=== PATIENT | female | born 1950 | race Caucasian/White ===

== ENCOUNTER 2019-09-30 11:55 | Inpatient (IN) | payer MEDICARE, OTHER ==
[2019-09-30] MEDS ORDERED: Sodium Chloride 0.9% 1000 ML 1,000 ML IV STA (12:21)
[2019-09-30] MEDS ORDERED: Hydromorphone 1 mg/ml Ampule IV ONE (12:21)
[2019-09-30] MEDS ORDERED: Zofran 4 MG/2 ML VIAL IV ONE (12:21)
--- NOTE | 2019-09-30 12:34 | ERPHSYRPT ---
- History of Present Illness Time Seen by Provider: 09/30/19 11:56 Historian: patient Exam Limitations: no limitations Patient Subjective Stated Complaint: pt here from [facility] care for abd pain to right side of abd since yesterday, she states she was unable to get lab work done because she felt light headed, fever this morning, denies any n/v/d. Triage Nursing Assessment: pt alert, arrived per , was able to get self to bed and undress without assistance, resp easy, mask on, and off, pain to right side of abd, moves all ext well, Physician History: Patient is here with right lower quadrant pain. Originally, patient was in outpatient. She was going over to get a CT scan of her right lower quadrant. However, she had a near syncopal episode secondary to possible abdominal pain. And this brought her back to this emergency department. During this near syncopal episode she had no chest pain, shortness of breath, did not pass out, no loss of consciousness. Location: RLQ Quality: sharp Radiation: none Severity: moderate Duration: yesterday Timing: gradual Modifying factors/associated signs and symptoms: none tried Allergies/Adverse Reactions: No Known Drug Allergies Allergy (Verified 09/30/19 12:03) Home Medications: Atenolol [Tenormin] 25 mg PO DAILY 01/17/14 [History] Pantoprazole Sodium 40 mg PO DAILY 01/17/14 [History] Pramipexole Di-HCl [Pramipexole Dihydrochloride] 0.125 mg PO DAILY 01/17/14 [ History] Pravastatin Sodium 10 mg PO DAILY 01/17/14 [History] Torsemide [Demadex] 10 mg PO DAILY 01/17/14 [History] allopurinoL [Allopurinol] 100 mg DAILY 09/30/19 [History] Hx Tetanus, Diphtheria Vaccination/Date Given: Yes Hx Influenza Vaccination/Date Given: Yes Hx Pneumococcal Vaccination/Date Given: Yes Immunizations Up to Date: Yes Travel Risk - International Travel Have you traveled outside of the country in past 3 weeks: No - Coronavirus Screening Symptoms: Fever Close contact with a COVID-19 positive Pt in past 14-21 Days: No - Review of Systems Constitutional: No Fever, No Chills Eyes: No Symptoms Ears, Nose, & Throat: No Symptoms Respiratory: No Cough, No Dyspnea Cardiac: No Chest Pain, No Edema, No Syncope Abdominal/Gastrointestinal: Abdominal Pain, No Nausea, No Vomiting, No Diarrhea Genitourinary Symptoms: No Dysuria Musculoskeletal: No Back Pain, No Neck Pain Skin: No Rash Neurological: No Dizziness, No Focal Weakness, No Sensory Changes Psychological: No Symptoms Endocrine: No Symptoms All Other Systems: Reviewed and Negative - Past Medical History Pertinent Past Medical History: Yes Neurological History: Migraines ENT History: No Pertinent History Cardiac History: No Pertinent History Respiratory History: No Pertinent History Endocrine Medical History: No Pertinent History Musculoskeletal History: No Pertinent History GI Medical History: GERD History: Renal Disease, Other Psycho-Social History: No Pertinent History Female Reproductive Disorders: No Pertinent History Other Medical History: stage 4 kidney disease - Past Surgical History Past Surgical History: Yes Neuro Surgical History: No Pertinent History Cardiac: No Pertinent History Respiratory: No Pertinent History Gastrointestinal: No Pertinent History Genitourinary: No Pertinent History Musculoskeletal: Orthopedic Surgery Female Surgical History: No Pertinent History Other Surgical History: celi. knee arthroscopy,parathyroid - Social History Smoking Status: Never smoker Exposure to second hand smoke: No Drug Use: none Patient Lives Alone: No - Female History Hx Last Menstrual Period: post Hx Now: No - Nursing Vital Signs Nursing Vital Signs: Initial Vital Signs Temperature 99.1 F 09/30/19 12:06 Pulse Rate 78 09/30/19 12:06 Respiratory Rate 18 09/30/19 12:06 Blood Pressure 139/80 09/30/19 12:06 O2 Sat by Pulse Oximetry 97 09/30/19 12:06 Pain Scale Pain Intensity 3 - Physical Exam General Appearance: no apparent distress, alert Eye Exam: PERRL/EOMI, eyes nml inspection Ears, Nose, Throat Exam: normal ENT inspection, pharynx normal, moist mucous membranes Neck Exam: normal inspection, non-tender, supple, full range of motion Respiratory Exam: normal breath sounds, lungs clear, No respiratory distress Cardiovascular Exam: regular rate/rhythm, normal heart sounds Gastrointestinal/Abdomen Exam: soft, other (Right lower quadrant abdominal tenderness to palpation without rebound or guarding), No tenderness, No mass Back Exam: normal inspection, normal range of motion, No CVA tenderness, No vertebral tenderness Extremity Exam: normal inspection, normal range of motion, pelvis stable Neurologic Exam: alert, oriented x 3, cooperative, normal mood/affect, nml cerebellar function, sensation nml, No motor deficits Skin Exam: normal color, warm, dry SpO2 Interpretation: normal SpO2: 97 Comments: 09/30/19 12:33 No obvious deformity, sensation intact, 2+ capillary refill, 2 point tactile discrimination intact. 5 out of 5 strength. Full range of motion without pain. Compartments are soft, nontender. Overlying skin shows no tenting, bruising, ecchymosis. Motor: There is no pronator drift of out-stretched arms. Muscle bulk and tone are normal. Strength is full bilaterally. Reflexes: Reflexes are 2+ and symmetric at the biceps, triceps, knees, and ankles. Plantar responses are flexor. Sensory: Light touch sense are intact in bilateral upper and lower extremities. There is no sign of neglect. Coordination: Rapid alternating movements are intact. There is no dysmetria on [id number] and [id number]. There are no abnormal or extraneous movements. Romberg is absent. Gait/Stance: Posture is normal. Gait is steady with normal steps, base, arm swing, and turning. Heel and toe walking are normal. Tandem gait is normal. Ordered Tests: Active Orders 24 hr Category Date Time Status Admit as Inpatient ROUTINE Care 09/30/19 15:39 Active Code Status Order ROUTINE Care 09/30/19 15:38 Active EKG-ER Only STAT Care 09/30/19 12:21 Active IV Care Q6H Care 09/30/19 15:38 Active IV Insertion STAT Care 09/30/19 12:21 Active NPO Diet 09/30/19 15:39 Active ABDOMEN AND PELVIS W/0 CONTRAS [CT] Stat Exams 09/30/19 13:38 Completed CHEST 2 VIEWS (PA AND LAT) Stat Exams 09/30/19 13:39 Completed BMP AM.LAB Lab 10/01/19 04:00 Ordered CBC W DIFF AM.LAB Lab 10/01/19 04:00 Ordered CBC W DIFF Stat Lab 09/30/19 12:21 Completed CMP Stat Lab 09/30/19 12:21 Completed LIPASE Stat Lab 09/30/19 12:21 Completed Lactic Acid Stat Lab 09/30/19 12:21 Completed TROPONIN Q3H Lab 09/30/19 12:21 Completed TROPONIN Q3H Lab 09/30/19 15:30 Ordered TROPONIN Q3H Lab 09/30/19 18:30 Ordered TROPONIN Q3H Lab 09/30/19 21:30 Ordered TROPONIN Q3H Lab 10/01/19 00:30 Ordered UA W/RFX UR CULTURE Stat Lab 09/30/19 12:50 Completed Medication Summary Generic Name Dose Route Start Last Admin Trade Name Katherine PRN Reason Stop Dose Admin Piperacillin Sod/Tazobactam 100 mls @ 200 mls/hr 09/30/19 15:22 09/30/19 15: 25 Sod 4.5 gm/ Sodium Chloride IV 09/30/19 15:51 200 mls/hr STAT ONE Administration Piperacillin Sod/Tazobactam 100 mls @ 200 mls/hr 09/30/19 18:00 Sod 3.375 gm/ Sodium Chloride IV 10/30/19 17:59 Q6HT MARNI Sodium Chloride 1,000 mls @ 125 mls/hr 09/30/19 15:45 Sodium Chloride 0.9% 1000 Ml IV 10/30/19 15:44 .Q8H MARNI Morphine Sulfate 2 mg 09/30/19 15:38 Morphine Sulfate 2 Mg Inj IV 10/05/19 15:37 Q4H PRN PRN PAIN Ondansetron HCl 4 mg 09/30/19 15:38 Zofran 4 Mg/2 Ml Vial IV 10/30/19 15:37 Q6H PRN PRN NAUSEA/VOMITING Discontinued Medications Generic Name Dose Route Start Last Admin Trade Name Katherine PRN Reason Stop Dose Admin Hydromorphone HCl 1 mg 09/30/19 12:21 09/30/19 12:39 Hydromorphone 1 Mg/Ml Ampule IV 09/30/19 12:22 1 mg STAT ONE Administration Hydromorphone HCl Confirm 09/30/19 12:35 Hydromorphone 1 Mg/Ml Ampule Administered 09/30/19 12:36 Dose 1 mg .ROUTE .STK-MED ONE Sodium Chloride 1,000 mls @ 999 mls/hr 09/30/19 12:21 09/30/19 13:47 Sodium Chloride 0.9% 1000 Ml IV 09/30/19 13:21 Infused .Q1H1M STA Infusion Sodium Chloride Confirm 09/30/19 12:36 Sodium Chloride 0.9% 1000 Ml Administered 09/30/19 12:37 Dose 1,000 mls @ ud .ROUTE .STK-MED ONE Sodium Chloride Confirm 09/30/19 15:24 Sodium Chloride 100ml Mini-Bag Plus Administered 09/30/19 15:25 Dose 100 mls @ ud IV .STK-MED ONE Ondansetron HCl 4 mg 09/30/19 12:21 09/30/19 12:40 Zofran 4 Mg/2 Ml Vial IV 09/30/19 12:22 4 mg STAT ONE Administration Ondansetron HCl Confirm 09/30/19 12:35 Zofran 4 Mg/2 Ml Vial Administered 09/30/19 12:36 Dose 4 mg .ROUTE .STK-MED ONE Piperacillin Sod/Tazobactam Sod Confirm 09/30/19 15:24 Zosyn Inj Administered 09/30/19 15:25 Dose 4.5 gm IV .STK-MED ONE Lab/Rad Data: Laboratory Result Diagrams 09/30/19 12:21 09/30/19 12:21 Laboratory Results 09/30/19 09/30/19 09/30/19 Range/Units 12:50 12:21 12:21 WBC (4.0-10.5) K/mm3 RBC (4.1-5.4) M/mm3 Hgb (12.0-16.0) gm/dl Hct (35-47) % MCV (78-100) fl MCH (26-32) pg MCHC (32-36) g/dl RDW (11.5-14.0) % Plt Count (150-450) K/mm3 MPV (7.5-11.0) fl Gran % (36.0-66.0) % Eos # (Auto) (0-0.5) Absolute Lymphs (auto) (1.0-4.6) Absolute Monos (auto) (0.0-1.3) Lymphocytes % (24.0-44.0) % Monocytes % (0.0-12.0) % Eosinophils % (0.00-5.0) % Basophils % (0.0-0.4) % Absolute Granulocytes (1.4-6.9) Basophils # (0-0.4) Sodium 141 (137-145) mmol/L Potassium 4.7 (3.5-5.1) mmol/L Chloride 106 (98-107) mmol/L Carbon Dioxide 23 (22-30) mmol/L Anion Gap 16.6 H (5-15) MEQ/L BUN 35 H (7-17) mg/dL Creatinine 2.12 H (0.52-1.04) mg/dL Estimated GFR 24.5 ML/MIN Glucose 123 H (74-106) mg/dL Lactic Acid (0.4-2.0) Calcium 9.8 (8.4-10.2) mg/dL Total Bilirubin 1.10 (0.2-1.3) mg/dL AST 27 (14-36) U/L ALT 13 (0-35) U/L Alkaline Phosphatase 141 H (38-126) U/L Troponin I < 0.012 (0.000-0.034) ng/mL Serum Total Protein 7.9 (6.3-8.2) g/dL Albumin 4.5 (3.5-5.0) g/dL Lipase 83 (23-300) U/L Urine Color YELLOW (YELLOW) Urine Appearance CLEAR (CLEAR) Urine pH 5.0 (5-6) Ur Specific [place] 1.018 (1.005-1.025) Urine Protein 100 (Negative) Urine Ketones NEGATIVE (NEGATIVE) Urine Blood SMALL (0-5) Jose Carlos/ul Urine Nitrite NEGATIVE (NEGATIVE) Urine Bilirubin NEGATIVE (NEGATIVE) Urine Urobilinogen NEGATIVE (0-1) mg/dL Ur Leukocyte Esterase NEGATIVE (NEGATIVE) Urine WBC (Auto) NONE (0-5) /HPF Urine RBC (Auto) NONE (0-2) /HPF U Hyaline Cast (Auto) 3-5 (0-2) /LPF U Epithel Cells (Auto) NONE (FEW) /HPF Urine Bacteria (Auto) NONE (NEGATIVE) /HPF Urine Mucus (Auto) SLIGHT (NEGATIVE) /HPF Urine Culture Reflexed NO (NO) Urine Glucose NEGATIVE (NEGATIVE) mg/dL 09/30/19 09/30/19 Range/Units 12:21 12:21 WBC 15.4 H (4.0-10.5) K/mm3 RBC 4.44 (4.1-5.4) M/mm3 Hgb 13.3 (12.0-16.0) gm/dl Hct 41.0 (35-47) % MCV 92.3 (78-100) fl MCH 30.0 (26-32) pg MCHC 32.4 (32-36) g/dl RDW 16.0 H (11.5-14.0) % Plt Count 180 (150-450) K/mm3 MPV 12.1 H (7.5-11.0) fl Gran % 86.0 H (36.0-66.0) % Eos # (Auto) 0.03 (0-0.5) Absolute Lymphs (auto) 1.25 (1.0-4.6) Absolute Monos (auto) 0.85 (0.0-1.3) Lymphocytes % 8.1 L (24.0-44.0) % Monocytes % 5.5 (0.0-12.0) % Eosinophils % 0.2 (0.00-5.0) % Basophils % 0.2 (0.0-0.4) % Absolute Granulocytes 13.20 H (1.4-6.9) Basophils # 0.03 (0-0.4) Sodium (137-145) mmol/L Potassium (3.5-5.1) mmol/L Chloride (98-107) mmol/L Carbon Dioxide (22-30) mmol/L Anion Gap (5-15) MEQ/L BUN (7-17) mg/dL Creatinine (0.52-1.04) mg/dL Estimated GFR ML/MIN Glucose (74-106) mg/dL Lactic Acid 1.5 (0.4-2.0) Calcium (8.4-10.2) mg/dL Total Bilirubin (0.2-1.3) mg/dL AST (14-36) U/L ALT (0-35) U/L Alkaline Phosphatase (38-126) U/L Troponin I (0.000-0.034) ng/mL Serum Total Protein (6.3-8.2) g/dL Albumin (3.5-5.0) g/dL Lipase (23-300) U/L Urine Color (YELLOW) Urine Appearance (CLEAR) Urine pH (5-6) Ur Specific [place] (1.005-1.025) Urine Protein (Negative) Urine Ketones (NEGATIVE) Urine Blood (0-5) Jose Carlos/ul Urine Nitrite (NEGATIVE) Urine Bilirubin (NEGATIVE) Urine Urobilinogen (0-1) mg/dL Ur Leukocyte Esterase (NEGATIVE) Urine WBC (Auto) (0-5) /HPF Urine RBC (Auto) (0-2) /HPF U Hyaline Cast (Auto) (0-2) /LPF U Epithel Cells (Auto) (FEW) /HPF Urine Bacteria (Auto) (NEGATIVE) /HPF Urine Mucus (Auto) (NEGATIVE) /HPF Urine Culture Reflexed (NO) Urine Glucose (NEGATIVE) mg/dL - Progress Progress: improved Progress Note: 09/30/19 12:34 differential diagnosis includes kidney stone, compression fracture, infection, UTI, triple AAA - basic labs including: CBC, lipase, CMP, UA, - insert IV for fluids, pain meds, nausea control - consider imaging: CT ab/pelvis - We will also obtain an EKG, troponin evaluating her syncope 09/30/19 15:43 Nothing was found on syncopal work-up. Patient's CT scan did demonstrate acute appendicitis. Discussed over the phone with on-call general surgery, Dr. Burch. He requested the patient be admitted to his service. He will most likely take patient's appendix out. Started patient on Zosyn in ER. Counseled pt/family regarding: lab results, diagnosis, need for follow-up, rad results - Departure Departure Disposition: In-patient Admission Clinical Impression: Acute appendicitis Condition: Stable Critical Care Time: No Referrals: JEFFREY YOUNG [Primary Care Provider] -
[2019-09-30] MEDS ORDERED: Hydromorphone 1 mg/ml Ampule ONE (12:35)
[2019-09-30] MEDS ORDERED: Zofran 4 MG/2 ML VIAL ONE ×2 (12:35→17:07)
[2019-09-30] MEDS ORDERED: Sodium Chloride 0.9% 1000 ML 1,000 ML ONE (12:36)
[2019-09-30 12:39] LABS: BASOPHIL % 0.2 % (0.0-0.4); Basophil (Absolute #) 0.03 (0-0.4); Eosinophil % 0.2 % (0.00-5.0); Eosinophil (Absolute #) 0.03 (0-0.5); Hemoglobin 13.3 gm/dl (12.0-16.0); Lymphocyte (Absolute #) 1.25 (1.0-4.6); Lymphocytes % 8.1 % (24.0-44.0); Mean Cell Volume 92.3 fl (78-100); Mean Corpuscular Hgb Concent. 32.4 g/dl (32-36); Mean Platelet Volume 12.1 fl (7.5-11.0); Monocyte (Absolute #) 0.85 (0.0-1.3); Monocytes % 5.5 % (0.0-12.0); Platelet Count 180 K/mm3 (150-450); Red Blood Count 4.44 M/mm3 (4.1-5.4); White Blood Count 15.4 K/mm3 (4.0-10.5)
[2019-09-30 13:04] LABS: Appearance CLEAR (CLEAR); Bilirubin NEGATIVE (NEGATIVE); Blood SMALL Ery/ul (0-5); Glucose NEGATIVE (NEGATIVE); Ketones NEGATIVE (NEGATIVE); Leukocyte Esterase NEGATIVE (NEGATIVE); Mucus SLIGHT /HPF (NEGATIVE); Nitrite NEGATIVE (NEGATIVE); Protein,Urine Dip 100 (Negative); Specific Gravity 1.018 (1.005-1.025); Urobilinogen NEGATIVE mg/dL (0-1)
[2019-09-30 13:14] LABS: ALBUMIN 4.5 g/dL (3.5-5.0); ANION GAP 16.6 MEQ/L (5-15); BILIRUBIN,TOTAL 1.1 mg/dL (0.2-1.3); Calcium 9.8 mg/dL (8.4-10.2); Creatinine 1 2.12 mg/dL (0.52-1.04); Potassium 4.7 mmol/L (3.5-5.1); Total Protein 7.9 g/dL (6.3-8.2)
--- NOTE | 2019-09-30 14:47 | XRAY ---
Exam: Two-view chest from 09/30/2019. Comparison: Two-view chest from 04/22/2019. Indication: 68-year-old female with abdominal pain, syncope. Findings: Upright PA and lateral chest films are submitted for evaluation. The transverse heart size is normal. There is marked tortuosity of the distal descending thoracic aorta. There appears to be a mild retrocardiac hiatal hernia. The darcie appear unremarkable. The lungs are adequately inflated. There is mild elevation/eventration of the right hemidiaphragm. There is some increased bibasilar linear stranding, right greater than left. This is more pronounced than that seen on 04/22/2019. This may represent plate atelectasis. Fibrotic scarring would be another possibility. Mildred air space infiltrate is not seen. The upper and midlung zones appear clear. No pneumothorax or pleural fluid is seen. Bone demineralization, mild mid dorsal kyphosis, and mild thoracic spondylosis are seen. Impression: 1. Increasing bibasilar linear stranding, right greater than left, representing worsening as compared to 04/22/2019. This is likely due to bibasilar plate atelectasis, right greater than left. Fibrotic scarring cannot be excluded. 2. I see no air space infiltrates or other acute cardiopulmonary disease. 3. Mild elevation/eventration of the right hemidiaphragm and a mild retrocardiac hiatal hernia are seen.
[2019-09-30] MEDS ORDERED: Zosyn INJ 4.5 GM in Sodium Chloride 100ML MINI-BAG PLUS 100 ML IV ONE (15:22)
[2019-09-30] MEDS ORDERED: Zosyn INJ IV ONE (15:24)
[2019-09-30] MEDS ORDERED: Sodium Chloride 100ML MINI-BAG PLUS 100 ML IV ONE (15:24)
--- NOTE | 2019-09-30 15:28 | XRAY ---
Exam: CT of the abdomen and pelvis without IV contrast from 09/30/2019. CTDI: 11.48 mGy Comparison: None. Indication: 68-year-old female with right lower quadrant abdominal pain which began last night. Technique: Non-IV contrast axial images were obtained through the abdomen and pelvis. Reconstructed coronal and sagittal images were created and reviewed. Findings: The transverse heart size appears borderline enlarged. A mild to moderate sized retrocardiac hiatal hernia is seen. Some patchy posterior bibasilar atelectasis is seen, right greater than left. There is a 3.5 mm lung nodule at the anterior right lung base on axial image #4. This is likely not significant. The liver is of unremarkable size and uniform attenuation. The gallbladder is mildly dilated and is remarkable for a 1.4 cm in diameter solitary gallstone near the gallbladder neck. No gallbladder wall thickening or biliary duct distention is seen. The spleen is of normal size and reveals no mass. No abnormality of the pancreas and adrenal glands appear unremarkable. The kidneys reveal no definite mass, renal calculi, or hydronephrosis. The right kidney is slightly small measuring about 8.3 cm in length. The left kidney measures 9.8 cm in length which is normal. Some atherosclerotic vascular calcification is seen within a mildly tortuous abdominal aorta. No abdominal aortic aneurysm is seen. No abnormal retroperitoneal lymphadenopathy is seen. There is no free intraperitoneal air. There is some mild thinning and outward bulging of the midline anterior abdominal wall inferior to the umbilicus, although no ventral hernia is seen. Within the right lower quadrant, I note a thickened appendix with surrounding periappendiceal stranding and perhaps a tiny amount of curvilinear fluid suggestive of acute appendicitis. No abscess is seen. Diffuse colonic diverticulosis is seen, the greatest number of diverticula noted within the distal descending colon and sigmoid colon. I see no evidence of acute diverticulitis. The bowel appears nonobstructed. The uterus is anteflexed. No enlarged pelvic lymph nodes are seen. The remainder of the pelvic adnexa appears unremarkable. The urinary bladder is mildly distended and appears grossly unremarkable. There is no free fluid within the pelvis. The skeleton reveals no acute fracture or aggressive bone lesion. There is early/mild degenerative disc disease at L5-S1. Impression: 1. CT findings consistent with acute appendicitis. I called this report to the emergency department physician, Dr. Dmitri Devine, at 3:10 PM on 09/30/2019. 2. Diffuse colonic diverticulosis without definite acute diverticulitis. 3. Cholelithiasis. 4. There is mild/moderate patchy atelectasis at both lung bases posteriorly, right greater than left. 5. Moderate sized retrocardiac hiatal hernia and a relatively small right kidney are noted.
[2019-09-30] MEDS ORDERED: Zofran 4 MG/2 ML VIAL IV PRN (15:38)
[2019-09-30] MEDS ORDERED: MORPHINE SULFATE 2 MG INJ IV PRN (15:38)
[2019-09-30] MEDS ORDERED: Sodium Chloride 0.9% 1000 ML 1,000 ML IV SCH (15:45)
[2019-09-30] MEDS ORDERED: Lactated Ringers 1,000 ML IV SCH (16:30)
[2019-09-30] MEDS ORDERED: MEFOXIN 2 GM PREMIX** 2 GM/50 ML ML IV SCH (17:00)
[2019-09-30] MEDS ORDERED: Zemuron 100 MG/10 ML ONE (17:07)
[2019-09-30] MEDS ORDERED: SUBLIMAZE 100 MCG/2 ML ONE (17:07)
[2019-09-30] MEDS ORDERED: Quelicin Fliptop 200 MG/10 ML ONE (17:07)
[2019-09-30] MEDS ORDERED: Decadron 4 MG INJ ONE (17:07)
[2019-09-30] MEDS ORDERED: BRIDION 200MG/2ML IV ONE (17:07)
[2019-09-30] MEDS ORDERED: DIPRIVAN 200 MG/20 ML IV ONE (17:07)
[2019-09-30] MEDS ORDERED: TORAdol 30 mg Injection ONE (17:07)
[2019-09-30] MEDS ORDERED: Xylocaine-Mpf 2% 5 Ml Vial ONE (17:07)
[2019-09-30] MEDS ORDERED: Ketamine HCl 50 MG/ML ONE (17:08)
[2019-09-30] MEDS ORDERED: Sensorcaine 0.25% 10 ML ONE (18:10)
[2019-09-30] MEDS ORDERED: Lactated Ringers 1,000 ML IV ONE (18:10)
[2019-09-30] MEDS ORDERED: Zosyn 3.375 GM Vial 3.375 GM in Sodium Chloride 100ML MINI-BAG PLUS 100 ML IV SCH (22:00)
[2019-09-30] MEDS ORDERED: Sodium Chloride 0.9% 100 ML IVPB 100 ML IV ONE (23:17)
[2019-09-30] MEDS ORDERED: Unasyn 3 GM Vial ONE (23:18)
[2019-09-30] MEDS: Unasyn 3GM / NaCl 100ML 3 GM/100 ML IVPB IV SCH (23:30)
[2019-10-01] MEDS ORDERED: Lactated Ringers 1,000 ML IV SCH (05:00)
[2019-10-01] MEDS ORDERED: Unasyn 3 GM Vial ONE (05:55)
[2019-10-01] MEDS ORDERED: Sodium Chloride 0.9% 100 ML IVPB 100 ML IV ONE (05:56)
[2019-10-01 06:01] LABS: BASOPHIL % 0.1 % (0.0-0.4); Basophil (Absolute #) 0.01 (0-0.4); Eosinophil (Absolute #) 0 (0-0.5); Hematocrit 37.4 % (35-47); Hemoglobin 11.7 gm/dl (12.0-16.0); Lymphocyte (Absolute #) 0.65 (1.0-4.6); Lymphocytes % 4.4 % (24.0-44.0); Mean Cell Volume 94.7 fl (78-100); Mean Corpuscular Hemoglobin 29.6 pg (26-32); Mean Corpuscular Hgb Concent. 31.3 g/dl (32-36); Mean Platelet Volume 11.4 fl (7.5-11.0); Monocyte (Absolute #) 0.23 (0.0-1.3); Monocytes % 1.6 % (0.0-12.0); Neutrophil % 93.9 % (36.0-66.0); Platelet Count 120 K/mm3 (150-450); Red Blood Count 3.95 M/mm3 (4.1-5.4); Red Cell Distribution Width 15.9 % (11.5-14.0); White Blood Count 14.8 K/mm3 (4.0-10.5)
[2019-10-01] MEDS: Unasyn 3GM / NaCl 100ML 3 GM/100 ML IVPB IV SCH (06:06)
[2019-10-01 06:26] LABS: ANION GAP 15.6 MEQ/L (5-15); Calcium 8.7 mg/dL (8.4-10.2); Creatinine 1 2.15 mg/dL (0.52-1.04); Potassium 4.1 mmol/L (3.5-5.1)
[2019-10-01] MEDS ORDERED: NON-FORMULARY ITEM (Torsemide [Demadex] 10 MG) PO PRN (10:56)
[2019-10-01] MEDS ORDERED: DEMADEX 20 MG PO PRN (11:03)
[2019-10-01] MEDS ORDERED: MEDICATION INTERVENTION MC SCH (11:15)
[2019-10-01] MEDS: TENORMIN 50 MG PO SCH (11:35)
[2019-10-01] MEDS: ZYLOPRIM 100 MG PO SCH (11:36)
[2019-10-01] MEDS ORDERED: Unasyn 3GM / NaCl 100ML 3 GM/100 ML IVPB IV SCH (18:00)
[2019-10-01] MEDS ORDERED: NON-FORMULARY ITEM (Pramipexole Di-Hcl [Pramipexole Dihydrochloride] 0.25 MG) PO SCH (18:00)
[2019-10-01] MEDS ORDERED: Mirapex 0.5 MG Tablet PO SCH (18:00)
[2019-10-01] MEDS: ENOXAPARIN SODIUM SQ SCH (18:58)
--- NOTE | 2019-10-01 20:32 | XRAY ---
Indication: Short of breath. Comparison: October 30, 2019. PA/lateral chest demonstrates new small bibasilar effusions with again bibasilar subsegmental atelectasis/scarring. Remaining heart and lungs unremarkable. Incidental CT proven gallstone. Comment: Preliminary interpretation was made by [facility]. No critical discrepancy.
[2019-10-01] MEDS ORDERED: Zocor 10MG PO SCH (22:00)
[2019-10-02] MEDS ORDERED: Unasyn 3GM / NaCl 100ML 3 GM/100 ML IVPB IV SCH (06:00)
[2019-10-02] MEDS ORDERED: Unasyn 3 GM Vial ONE (06:13)
[2019-10-02] MEDS ORDERED: Sodium Chloride 0.9% 100 ML IVPB 100 ML IV ONE (06:14)
[2019-10-02 06:49] VITALS: BP 145/67; PULSE 68
[2019-10-02 08:07] LABS: Absolute Neutrophil Ct (ANC) 16.04 (1.4-6.9); BASOPHIL % 0.1 % (0.0-0.4); Basophil (Absolute #) 0.01 (0-0.4); Eosinophil % 0.1 % (0.00-5.0); Eosinophil (Absolute #) 0.02 (0-0.5); Hematocrit 38.5 % (35-47); Hemoglobin 12.2 gm/dl (12.0-16.0); Lymphocyte (Absolute #) 0.69 (1.0-4.6); Mean Corpuscular Hemoglobin 29.5 pg (26-32); Mean Corpuscular Hgb Concent. 31.7 g/dl (32-36); Mean Platelet Volume 11.7 fl (7.5-11.0); Monocyte (Absolute #) 0.53 (0.0-1.3); Monocytes % 3.1 % (0.0-12.0); Neutrophil % 92.7 % (36.0-66.0); Platelet Count 163 K/mm3 (150-450); Red Blood Count 4.14 M/mm3 (4.1-5.4); Red Cell Distribution Width 15.9 % (11.5-14.0); White Blood Count 17.3 K/mm3 (4.0-10.5)
[2019-10-02 08:21] LABS: ANION GAP 14.9 MEQ/L (5-15); Calcium 9.1 mg/dL (8.4-10.2); Creatinine 1 2.22 mg/dL (0.52-1.04); Potassium 4.2 mmol/L (3.5-5.1)
[2019-10-02] MEDS: ENOXAPARIN SODIUM SQ SCH (09:45)
[2019-10-02] MEDS: TENORMIN 50 MG PO SCH (09:46)
[2019-10-02] MEDS: ZYLOPRIM 100 MG PO SCH (09:46)
[2019-10-02] MEDS ORDERED: NON-FORMULARY ITEM (Pravastatin Sodium [Pravastatin Sodium] 10 MG) PO SCH (10:00)
[2019-10-02] MEDS ORDERED: ATENOLOL 25 MG PO SCH (10:00)
[2019-10-02 10:41] VITALS: O2SAT 93
[2019-10-02] MEDS ORDERED: ENOXAPARIN SODIUM SQ SCH (22:00)
--- NOTE | 2019-10-03 10:22 | OP ---
SURGERY DATE/TIME: 09/30/2019 3816 PREOPERATIVE DIAGNOSIS: Acute appendicitis. POSTOPERATIVE DIAGNOSIS: Acute perforated appendicitis with pelvic abscess. PROCEDURE: Laparoscopic appendectomy and evacuation pelvic abscess. SURGEON: Phani Burch M.D. ANESTHESIA: General. COMPLICATIONS: None. CONDITION: Stable. INDICATION: A patient with findings, symptoms, CT compatible with appendicitis. DESCRIPTION OF PROCEDURE: She was taken to surgery. General anesthetic. Routine prep and drape. The area was palpable in the right lower quadrant with anesthetic. Veress needle inserted. Opening pressure 1, insufflating pressure 14. A 12 port placed infraumbilical, good visualization. No issues. There was irma purulence in the right gutter behind the uterus and in front of the uterus. The uterus was post-menopausal, both ovaries and tubes were satisfactory other than the purulence in the pelvis. It was initially suctioned and irrigated. The appendix was short, 1.5 inches. It was anchored against the right posterior-lateral side wall. It was mobilized. The base was free. The appendix was only 2 inches long and the perforation was on the inferior-lateral edge. There had been appendicolith. The appendicolith was picked up and placed in specimen with the appendix. The base of the appendix taken with 2.5 vascular cartridge. The mesoappendix taken with clips. The very small, shrunken up appendix was placed in the specimen container with the appendicolith. The field was irrigated. It was dry. A 10 HAILEY was placed. The right gutter and pelvis was initially irrigated and suctioned. The drain secured. The hole closure device used on the umbilical port. Skin closed with lynette. Sterile dressing applied. The patient tolerated the procedure satisfactorily and findings discussed with the in the waiting room.
== END 2019-10-02 13:00 | disposition home or self-care (01) | DRG 340 ==
LOC: ED 11:55 → MED SURG 15:53
PROVIDERS: ADMIT Family Medicine; ATTEND Family Medicine
PROC: 0DTJ4ZZ Resection of Appendix, Percutaneous Endoscopic Approach (ICD-10-PCS; principal; 2019-09-30)
DX: K35.33 Acute appendicitis with perforation, localized peritonitis, and gangrene, with abscess (principal); Z79.899 Other long term (current) drug therapy; Z87.441 Personal history of nephrotic syndrome
CPT/HCPCS: 36000; 36415; 71046; 74176; 80048; 80053; 81001; 83605; 83690; 84484; 85025; 87070; 87077; 87186; 93005; 94760; 94762; 96360; 96365; 96374; 96375; 99285; J0295; J0330; J0694; J1100; J1170; J1650; J1885; J2405; J2543; J2704; J3010; A9270-GY

== ENCOUNTER 2019-10-03 17:19 | Emergency (ER) | payer MEDICARE, OTHER ==
[2019-10-03] MEDS ORDERED: Sodium Chloride 0.9% 1000 ML 1,000 ML IV SCH (18:45)
[2019-10-03 19:04] LABS: Absolute Neutrophil Ct (ANC) 6.79 (1.4-6.9); BASOPHIL % 0.2 % (0.0-0.4); Basophil (Absolute #) 0.02 (0-0.4); Eosinophil % 0.7 % (0.00-5.0); Eosinophil (Absolute #) 0.06 (0-0.5); Hematocrit 37.4 % (35-47); Hemoglobin 11.9 gm/dl (12.0-16.0); Lymphocyte (Absolute #) 0.84 (1.0-4.6); Lymphocytes % 10.1 % (24.0-44.0); Mean Cell Volume 92.6 fl (78-100); Mean Corpuscular Hemoglobin 29.5 pg (26-32); Mean Corpuscular Hgb Concent. 31.8 g/dl (32-36); Mean Platelet Volume 10.7 fl (7.5-11.0); Monocyte (Absolute #) 0.62 (0.0-1.3); Monocytes % 7.4 % (0.0-12.0); Neutrophil % 81.6 % (36.0-66.0); Platelet Count 160 K/mm3 (150-450); Red Blood Count 4.04 M/mm3 (4.1-5.4); Red Cell Distribution Width 15.8 % (11.5-14.0); White Blood Count 8.3 K/mm3 (4.0-10.5)
[2019-10-03 19:16] LABS: ALBUMIN 3.7 g/dL (3.5-5.0); ANION GAP 12.2 MEQ/L (5-15); BILIRUBIN,TOTAL 0.8 mg/dL (0.2-1.3); Calcium 8.9 mg/dL (8.4-10.2); Creatinine 1 2.29 mg/dL (0.52-1.04); Potassium 4.1 mmol/L (3.5-5.1)
[2019-10-03 19:42] LABS: Appearance CLEAR (CLEAR); Bilirubin NEGATIVE (NEGATIVE); Blood NEGATIVE Ery/ul (0-5); Glucose NEGATIVE (NEGATIVE); Ketones NEGATIVE (NEGATIVE); Leukocyte Esterase NEGATIVE (NEGATIVE); Nitrite NEGATIVE (NEGATIVE); Protein,Urine Dip 30 (Negative); Specific Gravity 1.014 (1.005-1.025); Urobilinogen NEGATIVE mg/dL (0-1)
--- NOTE | 2019-10-03 20:15 | ERPHSYRPT ---
- History of Present Illness Time Seen by Provider: 10/03/19 18:00 Patient Subjective Stated Complaint: Post op fever Triage Nursing Assessment: Patient ambulated back to ED and transferred self to bed. Patient A+O x3. Patient's skin pink, warm and dry. Patient has appendectomy on Thursday. Patient states her appendix had burst. Patient was sent home from hospital Thursday afternoon on atb. Patient was instructed to come to ED if temp got higher than 101.4. Patient's temp at 1600 was 101.7. Patient has three incision CDI. Patient has HAILEY drain draining bloody drainage. Physician History: A 68-year-old female who had an appendectomy Thursday or 4 days ago with right some rupture she was discharged after his course of IV antibiotics on Augmentin 500 mg twice daily today her temperature spike to 101.7 and she was following instructions and came to the ER. Allergies/Adverse Reactions: No Known Drug Allergies Allergy (Verified 10/03/19 17:55) Home Medications: Atenolol [Tenormin] 25 mg PO DAILY 01/17/14 [History] Pramipexole Di-HCl [Pramipexole Dihydrochloride] 0.25 mg PO EVENING MEAL [History] Pravastatin Sodium 10 mg PO DAILY 01/17/14 [History] Torsemide [Demadex] 10 mg PO DAILY PRN PRN 01/17/14 [History] Calcifediol [Rayaldee] 30 mcg PO UD 09/30/19 [History] allopurinoL [Allopurinol] 200 mg PO DAILY 09/30/19 [History] Hx Tetanus, Diphtheria Vaccination/Date Given: Yes Hx Influenza Vaccination/Date Given: Yes Hx Pneumococcal Vaccination/Date Given: Yes Immunizations Up to Date: Yes Travel Risk - International Travel Have you traveled outside of the country in past 3 weeks: No - Coronavirus Screening Are you exhibiting any of the following symptoms?: Yes Close contact with a COVID-19 positive Pt in past 14-21 Days: No - Review of Systems Constitutional: Fever Eyes: No Symptoms Ears, Nose, & Throat: No Symptoms Respiratory: No Cough, No Dyspnea Cardiac: No Chest Pain, No Edema, No Syncope Abdominal/Gastrointestinal: No Abdominal Pain, No Nausea, No Vomiting, No Diarrhea Genitourinary Symptoms: No Dysuria Musculoskeletal: No Back Pain, No Neck Pain Skin: No Rash Neurological: No Dizziness, No Focal Weakness, No Sensory Changes Psychological: No Symptoms Endocrine: No Symptoms All Other Systems: Reviewed and Negative - Past Medical History Pertinent Past Medical History: Yes Neurological History: Migraines ENT History: No Pertinent History Cardiac History: No Pertinent History Respiratory History: No Pertinent History Endocrine Medical History: No Pertinent History Musculoskeletal History: No Pertinent History GI Medical History: GERD History: Renal Disease, Other Psycho-Social History: No Pertinent History Female Reproductive Disorders: No Pertinent History Other Medical History: stage 4 kidney disease - Past Surgical History Past Surgical History: Yes Neuro Surgical History: No Pertinent History Cardiac: No Pertinent History Respiratory: No Pertinent History Gastrointestinal: Appendectomy Genitourinary: No Pertinent History Musculoskeletal: Orthopedic Surgery Female Surgical History: No Pertinent History Other Surgical History: celi. knee arthroscopy,parathyroid - Social History Smoking Status: Never smoker Exposure to second hand smoke: No Drug Use: none Patient Lives Alone: No - Female History Hx Last Menstrual Period: menopausal Hx Now: No - Nursing Vital Signs Nursing Vital Signs: Initial Vital Signs Temperature 99.2 F 10/03/19 17:55 Pulse Rate 70 10/03/19 17:55 Respiratory Rate 18 10/03/19 17:55 Blood Pressure 153/75 10/03/19 17:55 O2 Sat by Pulse Oximetry 93 L 10/03/19 17:55 Pain Scale Pain Intensity 5 - Physical Exam General Appearance: no apparent distress, alert Eye Exam: PERRL/EOMI, eyes nml inspection Ears, Nose, Throat Exam: normal ENT inspection, pharynx normal, moist mucous membranes Neck Exam: normal inspection, non-tender, supple, full range of motion Respiratory Exam: normal breath sounds, lungs clear, No respiratory distress Cardiovascular Exam: regular rate/rhythm, normal heart sounds Gastrointestinal/Abdomen Exam: soft, normal bowel sounds, tenderness, guarding, No mass Back Exam: normal inspection, normal range of motion, No CVA tenderness, No vertebral tenderness Extremity Exam: normal inspection, normal range of motion, pelvis stable Neurologic Exam: alert, oriented x 3, cooperative, normal mood/affect, nml cerebellar function, sensation nml, No motor deficits Skin Exam: normal color, warm, dry SpO2: 93 - Course Nursing assessment & vital signs reviewed: Yes - CT Exams Abdomen/Pelvis CT Interpretation: Negative Ordered Tests: Active Orders 24 hr Category Date Time Status IV Insertion STAT Care 10/03/19 18:35 Active ABDOMEN AND PELVIS W/0 CONTRAS [CT] Stat Exams 10/03/19 18:36 Taken BLOOD CULTURE Stat Lab 10/03/19 19:00 Received CBC W DIFF Stat Lab 10/03/19 19:00 Completed CMP Stat Lab 10/03/19 19:00 Completed Lactic Acid Stat Lab 10/03/19 18:50 Completed UA W/RFX UR CULTURE Stat Lab 10/03/19 19:34 Completed Medication Summary Generic Name Dose Route Start Last Admin Trade Name Katherine PRN Reason Stop Dose Admin Sodium Chloride 1,000 mls @ 100 mls/hr 10/03/19 18:45 Sodium Chloride 0.9% 1000 Ml IV 11/02/19 18:44 .Q10H [facility] Lab/Rad Data: Laboratory Result Diagrams 10/03/19 19:00 10/03/19 19:00 Laboratory Results 10/03/19 10/03/19 10/03/19 Range/Units 19:34 19:00 19:00 WBC 8.3 (4.0-10.5) K/mm3 RBC 4.04 L (4.1-5.4) M/mm3 Hgb 11.9 L (12.0-16.0) gm/dl Hct 37.4 (35-47) % MCV 92.6 (78-100) fl MCH 29.5 (26-32) pg MCHC 31.8 L (32-36) g/dl RDW 15.8 H (11.5-14.0) % Plt Count 160 (150-450) K/mm3 MPV 10.7 (7.5-11.0) fl Gran % 81.6 H (36.0-66.0) % Eos # (Auto) 0.06 (0-0.5) Absolute Lymphs (auto) 0.84 L (1.0-4.6) Absolute Monos (auto) 0.62 (0.0-1.3) Lymphocytes % 10.1 L (24.0-44.0) % Monocytes % 7.4 (0.0-12.0) % Eosinophils % 0.7 (0.00-5.0) % Basophils % 0.2 (0.0-0.4) % Absolute Granulocytes 6.79 (1.4-6.9) Basophils # 0.02 (0-0.4) Sodium 138 (137-145) mmol/L Potassium 4.1 (3.5-5.1) mmol/L Chloride 106 (98-107) mmol/L Carbon Dioxide 23 (22-30) mmol/L Anion Gap 12.2 (5-15) MEQ/L BUN 39 H (7-17) mg/dL Creatinine 2.29 H (0.52-1.04) mg/dL Estimated GFR 22.5 ML/MIN Glucose 98 (74-106) mg/dL Lactic Acid (0.4-2.0) Calcium 8.9 (8.4-10.2) mg/dL Total Bilirubin 0.80 (0.2-1.3) mg/dL AST 20 (14-36) U/L ALT 12 (0-35) U/L Alkaline Phosphatase 109 (38-126) U/L Serum Total Protein 7.0 (6.3-8.2) g/dL Albumin 3.7 (3.5-5.0) g/dL Urine Color YELLOW (YELLOW) Urine Appearance CLEAR (CLEAR) Urine pH 6.0 (5-6) Ur Specific [place] 1.014 (1.005-1.025) Urine Protein 30 (Negative) Urine Ketones NEGATIVE (NEGATIVE) Urine Blood NEGATIVE (0-5) Jose Carlos/ul Urine Nitrite NEGATIVE (NEGATIVE) Urine Bilirubin NEGATIVE (NEGATIVE) Urine Urobilinogen NEGATIVE (0-1) mg/dL Ur Leukocyte Esterase NEGATIVE (NEGATIVE) Urine WBC (Auto) NONE (0-5) /HPF Urine RBC (Auto) NONE (0-2) /HPF U Epithel Cells (Auto) NONE (FEW) /HPF Urine Bacteria (Auto) NONE (NEGATIVE) /HPF Urine Culture Reflexed NO (NO) Urine Glucose NEGATIVE (NEGATIVE) mg/dL 10/02/ Range/Units 18:50 WBC (4.0-10.5) K/mm3 RBC (4.1-5.4) M/mm3 Hgb (12.0-16.0) gm/dl Hct (35-47) % MCV (78-100) fl MCH (26-32) pg MCHC (32-36) g/dl RDW (11.5-14.0) % Plt Count (150-450) K/mm3 MPV (7.5-11.0) fl Gran % (36.0-66.0) % Eos # (Auto) (0-0.5) Absolute Lymphs (auto) (1.0-4.6) Absolute Monos (auto) (0.0-1.3) Lymphocytes % (24.0-44.0) % Monocytes % (0.0-12.0) % Eosinophils % (0.00-5.0) % Basophils % (0.0-0.4) % Absolute Granulocytes (1.4-6.9) Basophils # (0-0.4) Sodium (137-145) mmol/L Potassium (3.5-5.1) mmol/L Chloride (98-107) mmol/L Carbon Dioxide (22-30) mmol/L Anion Gap (5-15) MEQ/L BUN (7-17) mg/dL Creatinine (0.52-1.04) mg/dL Estimated GFR ML/MIN Glucose (74-106) mg/dL Lactic Acid 1.2 (0.4-2.0) Calcium (8.4-10.2) mg/dL Total Bilirubin (0.2-1.3) mg/dL AST (14-36) U/L ALT (0-35) U/L Alkaline Phosphatase (38-126) U/L Serum Total Protein (6.3-8.2) g/dL Albumin (3.5-5.0) g/dL Urine Color (YELLOW) Urine Appearance (CLEAR) Urine pH (5-6) Ur Specific [place] (1.005-1.025) Urine Protein (Negative) Urine Ketones (NEGATIVE) Urine Blood (0-5) Jose Carlos/ul Urine Nitrite (NEGATIVE) Urine Bilirubin (NEGATIVE) Urine Urobilinogen (0-1) mg/dL Ur Leukocyte Esterase (NEGATIVE) Urine WBC (Auto) (0-5) /HPF Urine RBC (Auto) (0-2) /HPF U Epithel Cells (Auto) (FEW) /HPF Urine Bacteria (Auto) (NEGATIVE) /HPF Urine Culture Reflexed (NO) Urine Glucose (NEGATIVE) mg/dL - Progress Progress: unchanged Progress Note: 10/03/19 20:11 Cussed the case with Dr. Bry Burch who suggested we switch to Cipro and Flagyl. - Departure Departure Disposition: Home Clinical Impression: Fever Condition: Stable Critical Care Time: No Referrals: JEFFREY YOUNG [Primary Care Provider] - Instructions: Fever, Adult (DC) Prescriptions: Ciprofloxacin [Cipro 500 MG] 500 mg PO BID 10 Days #20 tablet Ciprofloxacin [Cipro 500 MG] 500 mg PO BID #14 tablet Metronidazole 500 mg [Flagyl 500 MG] 500 mg PO TID #21 tablet
[2019-10-03] MEDS ORDERED: Flagyl 500 MG PO ONE (20:20)
[2019-10-03] MEDS ORDERED: Flagyl 500 MG ONE (20:21)
[2019-10-03] MEDS ORDERED: Cipro 500 MG ONE (20:21)
[2019-10-03] MEDS ORDERED: Cipro 500 MG PO ONE (20:26)
[2019-10-03 20:39] VITALS: BP 167/75; PULSE 68; O2SAT 95
--- NOTE | 2019-10-04 08:57 | XRAY ---
Indication: Fever. Status post appendectomy September 30, 2019. Multiple contiguous axial images obtained through the abdomen and pelvis without contrast as ordered. Comparison: September 30, 2019. Lung bases again demonstrates bilateral subsegmental atelectasis greater than before. No effusion. Heart remains borderline enlarged. Stable moderate-sized hiatal hernia with partial intrathoracic stomach. Noncontrasted stomach and bowel loops appear nonobstructed. Stable mild scattered colonic diverticulosis again greatest sigmoid colon. Interval appendectomy with postsurgical changes and new HAILEY drain in situ. No walled off fluid collection or free air. Gallbladder remains distended with stable 1.4 cm stone near the neck. No CT features for cholecystitis or biliary distention. Stable small uterine calcified fibroid. Remaining liver, pancreas, spleen, adrenal glands, kidneys, ureters, and bladder appear unremarkable for noncontrast exam. Stable minimal aortic calcifications without AAA. Impression: 1. Status post appendectomy with HAILEY drain in situ. No complications on this noncontrast exam. 2. Mild worsening bibasilar subsegmental atelectasis. 3. Stable hiatal hernia, distended gallbladder with gallstone, colonic diverticulosis, and calcified uterine fibroid.
[2019-10-04] MEDS ORDERED: Levofloxacin 500 MG Tablet PO SCH (10:00)
== END 2019-10-03 20:39 | disposition home or self-care (01) ==
LOC: ED 17:19
DX: R50.9 Fever, unspecified (principal); N18.4 Chronic kidney disease, stage 4 (severe)
CPT/HCPCS: 36415; 74176; 80053; 81001; 83605; 85025; 87040; 99284; A9270-GY